=== PATIENT | female | born 1985 | race Caucasian/White ===

== ENCOUNTER → 2017-06-12 | Outpatient (CLI) | payer OTHER ==
[2017-06-12 10:10] LABS: ADD MAN DIFF? NO
[2017-06-12 10:19] LABS: BASO % 0 % (0-3); EOS % 1 % (0-3); HEMATOCRIT 38.7 % (36.0-47.0); LYMPH # 1.4 x10^3/uL (1.0-4.8); LYMPH % 20 % (24-48); MEAN CORPUSCULAR HEMOGLOBIN 32 pg (25-35); MEAN CORPUSCULAR HGB CONC 34 g/dL (31-37); MEAN CORPUSCULAR VOLUME 95 fL (79-100); MONO # 0.4 x10^3/uL (0.0-1.1); MONO % 6 % (0-9); NEUT # 5.3 x10^3uL (1.8-7.7); NEUT % 74 % (31-73); PLATELET COUNT 303 x10^3/uL (140-400); RED BLOOD COUNT 4.09 x10^6/uL (3.50-5.40); RED CELL DISTRIBUTION WIDTH 12.3 % (11.5-14.5); WHITE BLOOD COUNT 7.2 x10^3/uL (4.0-11.0)
[2017-06-12 10:31] LABS: ALBUMIN 3.9 g/dL (3.4-5.0); ALBUMIN/GLOBULIN RATIO 1.1 (1.0-1.7); ALK PHOS 61 U/L (46-116); ALT (SGPT) 32 U/L (14-59); ANION GAP 9 (6-14); AST (SGOT) 13 U/L (15-37); BLOOD UREA NITROGEN 22 mg/dL (7-20); BUN/CREATININE RATIO 31 (6-20); CALCIUM 8.6 mg/dL (8.5-10.1); CARBON DIOXIDE 28 mmol/L (21-32); CHLORIDE 104 mmol/L (98-107); CREATININE 0.7 mg/dL (0.6-1.0); GFR 95.8; GLUCOSE 102 mg/dL (70-99); POTASSIUM 3.9 mmol/L (3.5-5.1); SODIUM 141 mmol/L (136-145); TOTAL BILIRUBIN 0.3 mg/dL (0.2-1.0); TOTAL PROTEIN 7.5 g/dL (6.4-8.2)
[2017-06-12 10:41] LABS: THYROID STIM HORMONE (TSH) 1.471 uIU/mL (0.358-3.74)
[2017-06-14 14:26] LABS: FREE T4 0.86 ng/dL (0.76-1.46)
== END | disposition home or self-care (01) ==
LOC: LAB 09:50
DX: L74.519 Primary focal hyperhidrosis, unspecified (principal)
CPT/HCPCS: 36415; 80053; 84439; 84443; 85025

== ENCOUNTER → 2018-02-07 | Outpatient (CLI) | payer OTHER ==
--- NOTE | 2018-02-07 11:19 | RAD ---
DATE: 02/07/2018 EXAM: MAMMO SULEMA SCREENING BILATERAL HISTORY: Routine screening COMPARISON: 06/25/2015 This study was interpreted with the benefit of Computerized Aided Detection (CAD). Breast Density: DENSE The breast parenchyma is dense, which could reduce the sensitivity of mammography. Breast parenchyma level density D. FINDINGS: 2-D and 3-D tomosynthesis imaging was performed in CC and MLO projections. No spiculated mass or architectural distortion is seen. Benign type calcifications are noted. No suspicious microcalcifications have developed. IMPRESSION: Stable mammograms without evidence of malignancy. BI-RADS CATEGORY: 2 BENIGN FINDING(S) RECOMMENDED FOLLOW-UP: 12M 12 MONTH FOLLOW-UP PQRS compliance statement: Patient information was entered into a reminder system with a target due date for the next mammogram. Mammography is a sensitive method for finding small breast cancers, but it does not detect them all and is not a substitute for careful clinical examination. A negative mammogram does not negate a clinically suspicious finding and should not result in delay in biopsying a clinically suspicious abnormality. "Our facility is accredited by the [employer] Mammography Program."
--- NOTE | 2018-02-07 16:40 | RAD ---
Pelvic ultrasound, 02/07/2018: HISTORY: Dysfunctional uterine bleeding Transabdominal and transvaginal scans were obtained. On the initial transabdominal scans the bladder is quite distended with associated retroflexion of the uterus. The transvaginal scans demonstrate the uterus to measure 9 x 6 x 5 cm. A normal central uterine echo complex is evident with a maximum AP diameter 7 mm. The right ovary is mildly enlarged. It contains a 3.4 cm mass with septations and low level internal echoes. The appearance suggests a complicated cyst, perhaps a hemorrhagic cyst. No internal color flow is seen within this mass. The left ovary is within normal limits in size. It contains a couple small follicular cysts. Blood flow is present in the left ovary. A small amount of free fluid is evident in the pelvis. This amount of fluid can be on a physiologic basis. The adnexal regions are otherwise unremarkable. IMPRESSION: 1. No significant uterine abnormality is detected. 2. Small complicated cyst in the right ovary. This may be a functional/hemorrhagic cyst. Sonographic follow-up is suggested to exclude a neoplastic etiology. 3. Trace amount of free fluid in the pelvis. Electronically signed by: Naveen Mckenzie MD (02/07/2018 4:36 PM) [facility]
== END | disposition home or self-care (01) ==
LOC: US 09:52
PROVIDERS: ATTEND Family Medicine
DX: Z12.31 Encounter for screening mammogram for malignant neoplasm of breast (principal); N93.8 Other specified abnormal uterine and vaginal bleeding; Z80.3 Family history of malignant neoplasm of breast
CPT/HCPCS: 76830; 76856; 77063; 77067

== ENCOUNTER → 2019-03-13 | Outpatient (CLI) | payer OTHER ==
--- NOTE | 2019-03-14 08:30 | RAD ---
DATE: 03/13/2019. EXAM: MAMMO SULEMA CHARITY ESPARZAAT, BREAST RIGHT. HISTORY: Palpable focus superolaterally on the right. COMPARISON: 02/07/2019. This study was interpreted with the benefit of Computerized Aided Detection (CAD). FINDINGS: Breast Density: DENSE The breast parenchyma is dense, which could reduce the sensitivity of mammography. Breast parenchyma level density D.. A skin marker is placed laterally at the site of concern. It is seen only on the exaggerated CC view. Underlying this, there is no mammographic abnormality. Elsewhere, scattered calcifications are benign. The parenchymal pattern is stable. There is no suspicious mammographic finding. Sonography of the right breast was performed at the site of concern. A benign intraparenchymal lymph node at the 9:30 position 10 cm from the nipple measures 9 x 5 mm. The palpable focus may correspond with a ridge of normal parenchyma at the 10:00 position 12 cm from the nipple. There is no suspicious sonographic finding. Images of the axilla reveal no enlarged lymph nodes or other abnormality. BI-RADS CATEGORY: 2 BENIGN FINDING(S). RECOMMENDED FOLLOW-UP: 12M 12 MONTH FOLLOW-UP. 1. Recommend ongoing clinical follow-up of palpable findings. 2. Screening mammography in one year. PQRS compliance statement: Patient information was entered into a reminder system with a target due date 03/13/2020 for the next mammogram. Mammography is a sensitive method for finding small breast cancers, but it does not detect them all and is not a substitute for careful clinical examination. A negative mammogram does not negate a clinically suspicious finding and should not result in delay in biopsying a clinically suspicious abnormality. "Our facility is accredited by the [employer] Mammography Program."
== END | disposition home or self-care (01) ==
LOC: MAMMO 14:21
PROVIDERS: ATTEND Internal Medicine
DX: N64.89 Other specified disorders of breast (principal)
CPT/HCPCS: 76641; 77066; G0279; 77062

== ENCOUNTER → 2019-11-29 | Outpatient (CLI) | payer OTHER ==
--- NOTE | 2019-11-30 09:37 | SLEEP ---
DATE OF STUDY: 11/29/2019 HOME SLEEP STUDY REFERRING PHYSICIAN: Lashanda Prince APRN The patient is 34-year-old who weighs 155 pounds with a BMI of 25.8. The patient's [place] score was 1. The patient underwent home sleep study performed at [facility]. Total recording time was 454 minutes. During the night study, the patient had 18 mixed apneas, 1 obstructive, 1 central apnea and 12 hypopneas. The patient's AHI was 9.8 per hour. Nocturnal oximetry study revealed no significant desaturations. Mean heart rate 64 beats per minute. IMPRESSION: 1. Mild obstructive sleep apnea at an AHI of 9.8 per hour. 2. No significant nocturnal hypoxia. RECOMMENDATIONS: 1. The patient has mild MORALES. If the patient is clinically symptomatic or has comorbid conditions, then consider treatment with either oral appliance or CPAP. 2. Avoid HYDROGRAPHY TE[employer]ER depressants. 3. Caution regarding driving until symptoms of sleep apnea resolve with above recommendations. TAPAN ARNOLD MD DR: NICKY/hakeem JOB#: [id number] / [id number] LASHANDA Chapin APRN
== END | disposition home or self-care (01) ==
LOC: RT 09:46
DX: G47.33 Obstructive sleep apnea (adult) (pediatric) (principal)
CPT/HCPCS: G0399

== ENCOUNTER → 2019-12-25 | Outpatient (CLI) | payer OTHER ==
[2019-12-25 09:29] LABS: HEMATOCRIT 38.8 % (36.0-47.0); HEMOGLOBIN 13.3 g/dL (12.0-15.5); RED BLOOD COUNT 4.17 x10^6/uL (3.50-5.40); RED CELL DISTRIBUTION WIDTH 11.9 % (11.5-14.5); WHITE BLOOD COUNT 7.8 x10^3/uL (4.0-11.0)
[2019-12-25 09:45] LABS: ALBUMIN 4.1 g/dL (3.4-5.0); ALBUMIN/GLOBULIN RATIO 1.1 (1.0-1.7); CALCIUM 8.9 mg/dL (8.5-10.1); CREATININE 0.7 mg/dL (0.6-1.0); GFR 94.7; POTASSIUM 3.9 mmol/L (3.5-5.1); TOTAL BILIRUBIN 0.3 mg/dL (0.2-1.0); TOTAL PROTEIN 7.7 g/dL (6.4-8.2)
[2019-12-25 09:46] LABS: CHOLESTEROL/HDL RATIO 2.8
[2019-12-25 09:55] LABS: FREE T4 0.87 ng/dL (0.76-1.46); THYROID STIM HORMONE (TSH) 1.127 uIU/mL (0.358-3.74)
== END | disposition home or self-care (01) ==
LOC: LAB 08:51
PROVIDERS: ATTEND Nurse Practitioner Family
DX: F41.0 Panic disorder [episodic paroxysmal anxiety] (principal)
CPT/HCPCS: 36415; 80053; 80061; 82306; 82607; 82746; 83540; 83550; 84439; 84443; 85027

== ENCOUNTER → 2020-02-01 | Outpatient (CLI) | payer OTHER | LOC: LAB 14:15 | PROVIDERS: ATTEND Internal Medicine Pulmonary Disease | DX: R51.9 Headache, unspecified (principal); R06.02 Shortness of breath; Z20.828 Contact with and (suspected) exposure to other viral communicable diseases | CPT/HCPCS: U0003 ==

== ENCOUNTER → 2020-04-04 | Outpatient (CLI) | payer OTHER | LOC: LAB 15:08 | PROVIDERS: ATTEND Internal Medicine Pulmonary Disease | DX: U07.1 COVID-19 (principal); R51.9 Headache, unspecified; R09.81 Nasal congestion; M79.10 Myalgia, unspecified site | CPT/HCPCS: U0003 ==